=== PATIENT | male | born 1995 | race Caucasian/White ===

== ENCOUNTER 2018-05-23 20:41 | Emergency (ER) | payer OTHER ==
[2018-05-23] MEDS ORDERED: HYDROCODONE/APAP 5/325 TAB PO ONE ×2 (22:08→22:58)
[2018-05-23] MEDS ORDERED: KETOROLAC 30 MG/1 ML SDV IM ONE (22:08)
[2018-05-23] MEDS ORDERED: predniSONE 20 MG TAB PO ONE (22:09)
--- NOTE | 2018-05-23 22:20 | EDPHY ---
HPI/HX/ROS/PE/MDM Narrative: CHIEF COMPLAINT: Left shoulder/neck pain HPI: This patient is a healthy 22 year old male. He had a neck injury from playing rugby several years ago, which occasionally causes recurrent pain in his neck or left shoulder. Today around 15:30 he was at the gym and lowering barbell during his regular exercise. He felt a "spasm or crunch" in the same area as his prior injury. His discomfort is primarily over the top of his left shoulder. He has pain with neck movement that radiates to his upper back, primarily on the left. His pain is the same with right or leftward gaze. Initially he had some paresthesias in elbow and fingers of LUE, but this has resolved. By 17:30 this evening, his pain was severe so he went to urgent care. He received ibuprofen, Tylenol, and a muscle relaxant. Despite this, is pain has continued to increase, so he presents here to the emergency department for further evaluation. He denies any direct trauma to his neck or shoulder. No headache or visual changes. He has no further complaints. REVIEW OF SYSTEMS: Aside from elements discussed in the HPI, a comprehensive 10-point review of systems was reviewed and is negative. PMH: Denies. 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 Student at [employer]. PHYSICAL EXAM: General:Patient is alert, in no acute distress. ENT:Eyes are normal to inspection. ENT inspection normal. Neck: Normal inspection. ROM limited due to pain. Respiratory:No respiratory distress. Breath sounds normal bilaterally. Cardiovascular: Regular rate and rhythm. Strong peripheral pulses. Normal cap refill. Back: Pain between medial scapular border and spine. No tenderness to palpation. Normal to inspection. Skin: Normal color. No rash. Warm and dry. Extremities: Normal appearance. Full range of motion. Neuro: Oriented x3. Normal motor function. Normal sensory function. No pronator drift. ED Course: 22 y/o male with history of prior neck injury presents with left-sided neck and upper back pain secondary to weightlifting earlier today. On exam, pain is localized primarily between the left medial scapular border and spine. No tenderness to palpation. Plan for x-ray to r/o fracture or other acute processes. Plan to administer 30mg IM Toradol, 60mg PO Prednisone, and 1 tab PO [place] for symptom relief. X-ray negative for acute processes. Administered an additional 1 tab PO [place] for pain relief. Reassessed patient. Discussed imaging results. Plan to discharge home in good condition. He will take a Medrol DosePak and follow up with a presidential support specialist. Return precautions discussed. Provided prescription for [place] for severe pain. The patient is comfortable with this plan. MDM: This patient presents with signs and symptoms that seem most consistent with a cervical radiculopathy. His neurologic exam is completely normal, so I highly doubt vertebral artery or carotid dissection. I think the patient would benefit from a course of anti-inflammatory medications as well as pain medicine and have referred him to a presidential support specialist. We discussed strict return precautions. - Data Points Imaging Results: Imaging Impressions Cervical Spine X-Ray 05/23/18 22:08 Impression: 1. Normal alignment without significant degenerative changes. 2. Consider additional MRI cervical spine if clinically indicated. Imaging: I viewed and interpreted images myself Medications Given: Discontinued Medications Hydrocodone Bitart/Acetaminophen ([place] 5/325) 1 tab PO EDNOW ONE Stop: 05/23/18 22:09 Last Admin: 05/23/18 22:17 Dose: 1 tab Hydrocodone Bitart/Acetaminophen ([place] 5/325) 1 tab PO EDNOW ONE Stop: 05/23/18 22:59 Last Admin: 05/23/18 23:12 Dose: 1 tab Ketorolac Tromethamine (Toradol) 30 mg IM EDNOW ONE Stop: 05/23/18 22:09 Last Admin: 05/23/18 22:17 Dose: 30 mg Prednisone (Prednisone) 60 mg PO EDNOW ONE Stop: 05/23/18 22:10 Last Admin: 05/23/18 22:17 Dose: 60 mg General Time Seen by Provider: 05/23/18 22:02 Initial Vital Signs: Initial Vital Signs Temperature (C) 36.4 C 05/23/18 20:48 Heart Rate 82 05/23/18 20:48 Respiratory Rate 18 05/23/18 20:48 Blood Pressure 161/86 H 05/23/18 20:48 O2 Sat (%) 96 05/23/18 20:48 O2 Delivery Mode Room Air Allergies/Adverse Reactions: No Known Allergies Allergy (Unverified 05/23/18 20:48) Home Medications: Medication Instructions Recorded methylPREDNISolone [Medrol Dose 1 each PO AD #1 ea 05/23/18 Cooper] oxyCODONE/APAP 5/325 [Percocet 1 - 2 tab PO Q6H PRN #10 tab 05/23/18 5/325 (*)] Departure - Departure Disposition: Home, Routine, Self-Care Clinical Impression: Cervical radiculopathy Condition: Good Instructions: Oxycodone/Acetaminophen (By mouth), Prednisone (By mouth), Cervical Disc Herniation (ED), Cervical Radiculopathy (ED) Additional Instructions: Follow up with a presidential support specialist within one week. Return to the emergency department for severe pain, fever, numbness, difficulty walking, change in location or nature of pain or other concerns. Use ibuprofen and Tylenol as directed. Take Medrol Dosepak as prescribed. Take Percocet as prescribed as needed for severe pain. Note: do not take Acetaminophen with Hydrocodone (Vicodin, Lortab) or Oycodone (Percocet). These medications also contain Acetaminophen. No more than 3000mg of Acetaminophen should be taken in 24 hours (for an adult). Referrals: [facility] [Outside] - As per Instructions Thomas Rosa MD [Medical Doctor] - As per Instructions Prescriptions: methylPREDNISolone [Medrol Dose [place]] 1 each PO AD #1 ea oxyCODONE/APAP 5/325 [Percocet 5/325 (*)] 1 - 2 tab PO Q6H PRN #10 tab PRN Reason: Pain, Severe Report Scribed for: Alf Ambriz Report Scribed by: Gina Reza Date of Report: 05/23/18 Time of Report: 22:20 Physician Review and Approval Statement: Portions of this note were transcribed by an ED scribe. I personally performed the history, physical exam, and medical decision making; and confirm the accuracy of the information in the transcribed note.
[2018-05-23 23:12] VITALS: BP 143/78
== END 2018-05-23 23:16 | disposition home or self-care (01) ==
DX: M54.12 Radiculopathy, cervical region (principal)
CPT/HCPCS: J1885; J7512

== ENCOUNTER 2018-05-26 16:39 | Emergency (ER) | payer OTHER ==
--- NOTE | 2018-05-26 17:40 | EDPHY ---
H & P Time Seen by Provider: 05/26/18 16:57 HPI/ROS: CHIEF COMPLAINT: Neck pain, medication refill request HISTORY OF PRESENT ILLNESS: 22-year-old male presents to the emergency department with ongoing neck pain. He was seen emergency department few days ago and had x-rays obtained. Given his mechanism, he was told he likely had herniated disc. He was given Medrol Dosepak as well as oral Percocet and told to be seen for follow-up with neurosurgeon. He presents because he has run out of his Percocet. He states that the Medrol Dosepak is not improved his pain at all. He denies radiation of pain in his upper extremities. He denies feeling of weakness in his upper extremities. ROS: Denies pain in his upper extremities or weakness. 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 Normal and equal strength for the upper extremities bilaterally. Radial, median, and ulnar nerves are all intact. Full range of motion of his neck and his upper extremities. Constitutional: Initial Vital Signs Temperature (C) 36.9 C 05/26/18 16:44 Heart Rate 82 05/26/18 16:44 Respiratory Rate 18 05/26/18 16:44 Blood Pressure 157/85 H 05/26/18 16:44 O2 Sat (%) 97 05/26/18 16:44 O2 Delivery Mode Room Air Allergies/Adverse Reactions: No Known Allergies Allergy (Verified 05/26/18 16:43) Home Medications: Medication Instructions Recorded methylPREDNISolone [Medrol Dose 1 each PO AD #1 ea 05/23/18 [place]] oxyCODONE/APAP 5/325 [Percocet 1 - 2 tab PO Q6H PRN #10 tab 05/23/18 5/325 (*)] oxyCODONE/APAP 5/325 [Percocet 1 - 2 tab PO Q4-6PRN PRN #15 tab 05/26/18 5/325] MDM/Departure - [facility] ED Course/Re-evaluation: The patient was given a refill of his Percocet. He will continue Medrol Dosepak as prescribed. Encouraged to follow up with on-call neurosurgeon as recommended at his previous visit. He was told to return if he develops weakness or increasing pain in the upper extremities or his neck. Patient was comfortable with this plan. - Depart Disposition: Home, Routine, Self-Care Clinical Impression: Cervical strain Qualifiers: Encounter type: subsequent encounter Qualified Code(s): S16.1XXD - Strain of muscle, fascia and tendon at neck level, subsequent encounter Condition: Good Instructions: Cervical Strain (ED) Additional Instructions: Call Dr. Rosa's office to schedule follow up appointment. Tell them you were seen in the ER and told to be seen for follow up. Oxycodone for severe pain as directed. Prescriptions: oxyCODONE/APAP 5/325 [Percocet 5/325] 1 - 2 tab PO Q4-6PRN PRN #15 tab PRN Reason: For Moderate To Severe Pain Referrals: Thomas Rosa MD [Medical Doctor] - 2-3 days without fail (Neurosurgeon retail security professional )
[2018-05-26 18:02] VITALS: BP 151/92
== END 2018-05-26 18:02 | disposition home or self-care (01) ==
DX: S16.1XXD Strain of muscle, fascia and tendon at neck level, subsequent encounter (principal); X58.XXXD Exposure to other specified factors, subsequent encounter